=== PATIENT | male | born 1995 | race Caucasian/White ===

== ENCOUNTER 2018-10-21 18:56 | Emergency (ER) | payer OTHER ==
[~2018-10-21] VITALS: Wt 60.0 kg
[2018-10-21] MEDS ORDERED: ALPR0.25 PO (23:40)
[2018-10-22 00:03] VITALS: BP 106/68; PULSE 88; RESP 18
--- NOTE | 2018-11-10 21:21 | ERD ---
ER Documentation Chief Complaint Chief Complaint L eye loss of peripheral vision x1hr; denies trauma, no FB HPI This 23 MS has been a lot of stress lately and he said he felt like he lost p eripheral vision his left eye and saw some floaters this is resolved. He says there is been under a lot of stress lately. Denies suicidal homicidal ideation. Nonfocal neurologic. No focal neurologic complaints at this time with complete resolution of symptoms here. ROS All systems reviewed and are negative except as per history of present illness. Medications Home Meds Active Scripts Alprazolam* (Xanax*) 0.25 Mg Tablet, 0.25 MG PO Q8H PRN for ANXIETY, #14 TAB Prov:ALEXIA BAUMANN. 10/21/18 Allergies Allergies: Coded Allergies: No Known Allergy (Unverified , 10/21/18) PMhx/Soc Medical and Surgical Hx: pt denies Medical Hx, pt denies Surgical Hx Hx Alcohol Use: No Hx Substance Use: No Hx Tobacco Use: Yes (cigs) Smoking Status: Current every day smoker Physical Exam Physical Exam Const: No acute distress Head: Atraumatic Eyes: Normal Conjunctiva ENT: Normal External Ears, Nose and Mouth. Neck: Full range of motion. No meningismus. Resp: Clear to auscultation bilaterally Cardio: Regular rate and rhythm, no murmurs Abd: Soft, non tender, non distended. Normal bowel sounds Skin: No petechiae or rashes Back: No midline or flank tenderness Ext: No cyanosis, or edema Neur: Awake and alert Psych: Normal Mood and Affect Procedures/MDM Medical decision making: This very pleasant 23-year-old male likely has anxiety reaction. His management has follow-up with primary care physician return for any worsening symptoms for now 1. Patient has had care plan and diagnosis will follow-up as prescribed. Departure Diagnosis: Primary Impression: Anxiety reaction Condition: Stable Patient Instructions: Anxiety Reaction ALEXIA BAUMANN November 10, 2018 21:21
== END 2018-10-22 00:05 | disposition home or self-care (01) ==
LOC: E/R 18:56
DX: F41.9 Anxiety disorder, unspecified (principal); R40.2142 Coma scale, eyes open, spontaneous, at arrival to emergency department; R40.2362 Coma scale, best motor response, obeys commands, at arrival to emergency department; R40.2252 Coma scale, best verbal response, oriented, at arrival to emergency department; F17.210 Nicotine dependence, cigarettes, uncomplicated; R51 Headache
CPT/HCPCS: 70450; Z7610

== ENCOUNTER 2018-11-13 10:57 | Emergency (ER) | payer OTHER ==
[~2018-11-13] VITALS: Ht 170.2 cm; Wt 60.2 kg
[~2018-11-13 10:57] MED LIST: ALPR0.25 PO
[2018-11-13 11:02] VITALS: BP 118/68; PULSE 69; RESP 18; Ht 170.2 cm; Wt 60.2 kg
[2018-11-13] MEDS ORDERED: LIDOCAINE/MYLANTA 40 ML BTL PO STA (11:49)
[2018-11-13] MEDS ORDERED: BELLADONNA/PHENOBARBITAL TAB PO STA (11:49)
[2018-11-13] MEDS ORDERED: FAMO-96 PO (12:18)
[2018-11-13] MEDS ORDERED: HYDR-3029 PO (12:18)
--- NOTE | 2018-11-13 15:23 | ERD ---
ER Documentation Chief Complaint Chief Complaint C/O EPIGASTRIC PAIN, SPITTING UP BILE FOR 4 DAYS. NO DIARRHEA, VOMITING. HPI 23-year-old male presenting with epigastric pain for 4 days. Patient feels like a burning sensation in his chest. He has a history of anxiety and he feels this is like acid reflux. Denies any fevers or chest pain. No shortness of breath. Patient states that he has anxiety type sensations where he loses vision in his left eye but it resolves on its own. 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 Patient is currently taking Lexapro for OCD and anxiety. He is planning to see a psychiatrist and counselor within the next few days. Denies any suicidal or homicidal ideations. Denies medical problems. NKDA. Surgical history denies. Social history sober for 8 months. ROS All systems reviewed and are negative except as per history of present illness. Medications Home Meds Active Scripts Hydroxyzine Hcl* (Hydroxyzine Hcl*) 10 Mg Tablet, 10 MG PO Q6H PRN for ANXIETY, #30 TAB Prov:ANNE MARIE FLORES PA-C 11/13/18 Famotidine* (Pepcid*) 20 Mg Tablet, 20 MG PO BID for 4 Days, #30 TAB Prov:ANNE MARIE FLORES PA-C 11/13/18 Alprazolam* (Xanax*) 0.25 Mg Tablet, 0.25 MG PO Q8H PRN for ANXIETY, #14 TAB Prov:ALEXIA BAUMANN 10/21/18 Allergies Allergies: Coded Allergies: No Known Allergy (Unverified , 10/21/18) PMhx/Soc Medical and Surgical Hx: pt denies Medical Hx, pt denies Surgical Hx Hx Alcohol Use: No Hx Substance Use: No Hx Tobacco Use: Yes (cigs) Smoking Status: Current every day smoker FmHx Family History: No diabetes, No coronary disease, No other Physical Exam Vitals Vital Signs Date Temp Pulse Resp B/P (MAP) Pulse Ox O2 O2 Flow FiO2 Time Delivery Rate 11/13/18 97.1 69 18 118/68 99 11:02 (85) Physical Exam GENERAL: The patient is well-appearing, well-nourished, in no acute distress HEENT: Atraumatic. Conjunctivae are pink. Pupils equal, round, and reactive to light. There is no scleral icterus. Tympanic membranes clear bilaterally. Oropharynx clear. CHEST: Clear to auscultation bilaterally. There are no rales, wheezes or rhonchi. HEART: Regular rate and rhythm. No murmurs, clicks, rubs or gallops. ABDOMEN:Soft, nontender and nondistended. Good bowel sounds. No rebound or guarding. No gross peritonitis. No gross organomegaly or masses. Results 24 hrs Current Medications Medications Dose Sig/Stevan Start Time Status Last (Trade) Ordered Route PRN Stop Time Admin Dose Reason Admin 40 ml ONCE STAT 11/13/18 DC 11/13/18 Miscellaneous PO 11:49 11:58 Medication 11/13/18 11:50 (Gi Cocktail (2)) Belladonna/ 2 tab ONCE STAT 11/13/18 DC 11/13/18 Phenobarbital PO 11:49 11:58 () 11/13/18 11:50 Procedures/MDM EKG: Rate/Rhythm: 54 bpm Sinus bradycardia rhythm QRS, ST, T-waves: No changes consistent w/ acute ischemia Impression: No evidence of ischemia or arrhythmia ER course: GI cocktail given ED. MDM: 23-year-old male presenting with feelings of acid reflux. I have low suspicion for acute abdominal emergency. I have low suspicion for cardiac or pulmonary emergency. Patient is discharged with supportive medications. Patient is told symptoms change or worsen to return immediately to the ER. Patient follow-up with counselor as recommended. All questions answered at discharge Departure Diagnosis: Primary Impression: Epigastric pain Condition: Stable Patient Instructions: Epigastric Pain (Uncertain Cause) Referrals: CRYSTAL KELLY MD (PCP) Additional Instructions: FOLLOW UP WITH YOUR PRIMARY CARE PHYSICIAN TOMORROW.Return to this facility if you are not improving as expected. ANNE MARIE FLORES PA-C November 13, 2018 15:23
--- NOTE | 2018-11-14 14:29 | RADRPT ---
Vent Rate: 54 bpm RR Interval: 0 msec IN Interval: 144 msec QRS Duration: 90 msec QT Interval: 406 msec QTC Interval: 385 msec P-R-T [place]: 63 - 81 - 56 degrees Sinus bradycardia Otherwise normal ECG Electronically Signed By: [facility]
== END 2018-11-13 13:20 | disposition home or self-care (01) ==
LOC: FTE 10:57
DX: R10.13 Epigastric pain (principal); F17.210 Nicotine dependence, cigarettes, uncomplicated
CPT/HCPCS: 93005; Z7502; Z7610